=== PATIENT | male | born 1995 | race American Indian/Alaskan Native ===

== ENCOUNTER 2025-02-07 00:04 | Emergency (ER) | payer OTHER, SELFPAY ==
--- NOTE | 2025-02-07 00:07 | EDNOTE_ITS ---
ED Medical Clearance RME/HPI General Chief complaint: Medical Clearance Stated complaint: MEDICAL CLEARANCE Time Seen by Provider: 02/07/25 00:07 Arrival date/time: 02/07/25 00:04 RME / HPI RME / HPI Narrative: This section includes all my notes and documentations, including HPI, PE, and ED course. Cale Cho MD HPI: 29yo male with no significant past medical history BIB [facility] presents to the ED for a medical clearance. Per [facility], patient was brought in due to his heart rate being elevated. Patient currently denies any chest pain, shortness of breath, dizziness, nausea, vomiting or any other associated symptoms. Patient denies any drug or alcohol use. No other complaints reported. ROS: All negative except as documented in HPI. Physical Exam: General: Alert and oriented. No acute distress when remaining still. Eyes: Conjunctivae and lids clear. ENT: No nasal congestion. Neck: Supple. Heart: Sinus tachycardia noted (131 bpm). Lungs: No respiratory distress. Good air movement. No rhonchi, wheezing, rales. Abdomen: Soft and nontender. Normal bowel sounds. No distension. No rebound or guarding. Back: No CVA tenderness. Skin: Warm and dry. Neuro: Alert and oriented X 3. I reviewed all diagnostic test results. My interpretation of the EKG is sinus tachycardia with nonspecific ST-T changes. At this point, diagnoses include tachycardia. Patient declined all diagnostic tests and treatments, including oral metoprolol. He remained stable. Based on my best medical judgment, made decision to medically cleared the patient for skilled nursing. Patient understands and agrees to the discharge instructions customized and printed, see below. Discharge Instructions from Dr. Cho printed for you: 1. After evaluation, you are medically cleared for skilled nursing. 2. But we couldn't complete our evaluation/treatment because you declined everything except for EKG. 3. See a private doctor on 02/08/2025 or whenever you are released for recheck and further care. 4. Seek immediate medical care with chest pain or with any concerns. You can ask for medical care at any time. Cale Cho MD Related Information Allergies Allergy/AdvReac Type Severity Reaction Status Date / Time NKA* Allergy Uncoded 08/26/10 11:15 Review of Systems Review of Systems Systems Reviewed: All systems reviewed, normal except as documented ED Exam Narrative Physical exam: As noted in HPI. Course Quality Measures none Orders Category Date Time Status EKG (ED ONLY) *Do not use* NOW Care 02/07/25 00:08 Active EKG (ED Only) Stat Exams 02/07/25 00:08 Ordered Alcohol, Blood Medical Stat Lab 02/07/25 00:08 Ordered BNP [B-Type Natriuretic Peptide] Stat Lab 02/07/25 00:08 Ordered Bilirubin,Direct Stat Lab 02/07/25 00:08 Ordered CBC Stat Lab 02/07/25 00:08 Ordered CMP [Comprehensive Metabolic Panel] Stat Lab 02/07/25 00:08 Ordered D-Dimer Stat Lab 02/07/25 00:08 Ordered Drug Screen,Urine Stat Lab 02/07/25 00:08 Ordered Free T4 (Free Thyroxine) Stat Lab 02/07/25 00:08 Ordered Magnesium Stat Lab 02/07/25 00:08 Ordered TSH [Thyroid Stimulating Hormone] Stat Lab 02/07/25 00:08 Ordered Troponin I Stat Lab 02/07/25 00:08 Ordered Metoprolol Tartrate [Lopressor] Med 02/07/25 00:17 Discontinued 25 mg PO X1 ONE Medical Clearance MDM Narrative MDM Narrative:: Scribe Attestation: 02/07/25 - Vidal, Chastity Burton am scribing for and in the presence of Dr. Cho. 29yo male with no significant past medical history BIB [facility] presents to the ED for a medical clearance. Per [facility], patient was brought in due to his heart rate being elevated. Patient currently denies any chest pain, shortness of breath, dizziness, nausea, vomiting or any other associated symptoms. Patient denies any drug or alcohol use. No other complaints reported. Patient data External records reviewed:: [facility] previous records (Per chart review, patient has no previous ED visits or admissions to this facility.) Clinical information provided by:: patient Social determinants that could affect healthcare access:: none Patient has the following chronic illnesses:: none How is presenting disease/condition affected by chronic disease/condition?: no chronic disease Evaluation data The following diagnostics were reviewed and interpreted by me:: EKG tracing(s) (My interpretation of the EKG is: Sinus tachycardia (131 bpm) with nonspecific ST-T changes. Cale Cho MD) Lab and/or radiology exams considered but not ordered:: none Interpretation Summary: I reviewed all diagnostic test results. My interpretation of the EKG is sinus tachycardia with nonspecific ST-T changes. Medications / Prescriptions Medications or Prescriptions considered but not ordered:: none Medication administrations:: Medication Administration History Discontinued Medications Metoprolol Tartrate (Metoprolol Tartrate 25 Mg Tablet) 25 mg PO X1 ONE Stop: 02/07/25 00:18 Metoprolol ordered. Consultations Consultation(s) initiated? (list below): No Diagnosis Medical Clearance Differential Diagnosis: other (Alcohol intoxication, drug intoxication) Most likely diagnosis given after review of the tests above:: Tachycardia Admission Indicated Admission indicated?: not indicated Explain why admission is indicated or not indicated:: With no severe illness, there was no indication for admission. Admission Request Was there a request for admission?: No Disposition Plan Disposition Plan: Discharge Discharge Attestation Discharge Attestation: The patient and all family members were given an opportunity to ask questions and understood the discharge instructions. Discharge instructions specifically effects, indications for sooner follow up or return to the emergency department, and the expected course of current diagnosis. Patient condition: Stable Discharge Plan Plan Patient Disposition: Fpc/Court/Law Problem List Clinical Impression: Tachycardia Patient/Caregiver Discharge Instructions Discharge Activity: activity as tolerated Education Materials: ED About Arrhythmias Additional Instructions: Discharge Instructions from Dr. Cho printed for you: 1. After evaluation, you are medically cleared for skilled nursing. 2. But we couldn't complete our evaluation/treatment because you declined everything except for EKG. 3. See a private doctor on 02/08/2025 or whenever you are released for recheck and further care. 4. Seek immediate medical care with chest pain or with any concerns. You can ask for medical care at any time. Print Language: Arabic
[2025-02-07 00:16] VITALS: BMI 31.4
== END 2025-02-07 01:12 ==
LOC: SERX 00:48
PROVIDERS: Emergency Provider Emergency Medicine
DX: Z02.89 Encounter for other administrative examinations (principal); R00.0 Tachycardia, unspecified
CPT/HCPCS: 80053; 80307; 80320; 82248; 83735; 83880; 84439; 84443; 84484; 85025; 85379; 93005; 99283; G0480